=== PATIENT | female | born 1945 | race Caucasian/White ===

== ENCOUNTER 2017-05-08 02:17 | Emergency (ER) | payer MEDICARE, BC ==
[~2017-05-08] VITALS: Ht 157.5 cm; Wt 58.6 kg
[2017-05-08] MEDS ORDERED: MAGN400C2 PO (02:45)
[2017-05-08] MEDS ORDERED: REST0.05 (02:45)
[2017-05-08] MEDS ORDERED: FURO20TA2 (02:45)
[2017-05-08] MEDS ORDERED: CARBIDOPA (02:45)
[2017-05-08] MEDS ORDERED: LEVO75TA4 (02:45)
[2017-05-08] MEDS ORDERED: PROP80CA (02:45)
[2017-05-08] MEDS ORDERED: PANT40TA2 (02:45)
[2017-05-08] MEDS ORDERED: COMBAER6 (02:45)
[2017-05-08] MEDS ORDERED: SIMV10TA2 (02:45)
[2017-05-08] MEDS ORDERED: SODI1TAB6 (02:45)
[2017-05-08] MEDS ORDERED: BUSP1TAB (02:45)
[2017-05-08] MEDS ORDERED: MONT10TA2 (02:45)
[2017-05-08] MEDS ORDERED: CALC500C8 PO (02:45)
[2017-05-08] MEDS ORDERED: FENT12PA (02:45)
[2017-05-08] MEDS ORDERED: D31000CA4 PO (02:47)
[2017-05-08] MEDS ORDERED: OCUVTAB PO (02:47)
[2017-05-08] MEDS ORDERED: PROBCAP14 PO (02:47)
[2017-05-08] MEDS ORDERED: COLA100C5 PO (02:47)
[2017-05-08] MEDS ORDERED: MECLIZINE 25 MG TABLET PO ONE (04:15)
[2017-05-08 04:24] LABS: BASO % 0.7 % (0.0-1.0); EOS # 0.1 K/mm3 (0.0-0.50); EOS % 1.6 % (0.0-3.0); LARGE UNSTAINED CELL # 0.1 K/mm3 (0.0-0.4); LARGE UNSTAINED CELL % 1.7 % (0.0-4.0); LYMPH # 0.9 K/mm3 (1.5-4.5); MEAN CORPUSCULAR HEMOGLOBIN 32.5 pg (27.0-33.0); MEAN CORPUSCULAR HGB CONC 35.2 g/dl (32.0-36.5); MEAN CORPUSCULAR VOLUME 92.4 fl (80.0-96.0); MONO # 0.3 K/mm3 (0.0-0.8); MONO % 5.9 % (0.0-5.0); NEUTROPHILS # 3.6 K/mm3 (1.8-7.7); NEUTROPHILS % 72.2 % (36.0-66.0); PLATELET COUNT, AUTOMATED 215 k/mm3 (150-450); RED CELL DISTRIBUTION WIDTH 12.9 % (11.5-14.5)
[2017-05-08 04:33] LABS: ANION GAP 7 MEQ/L (8-16); BLOOD UREA NITROGEN 17 MG/DL (7-18); CALCIUM LEVEL 9.4 MG/DL (8.8-10.2); CARBON DIOXIDE LEVEL 31 MEQ/L (21-32); CHLORIDE LEVEL 92 MEQ/L (98-107); CREATININE FOR GFR 0.72 MG/DL (0.55-1.02); GLOMERULAR FILTRATION RATE > 60.0 (>39); GLUCOSE, FASTING 101 MG/DL (83-110); MAGNESIUM LEVEL 2.2 MG/DL (1.8-2.4); POTASSIUM SERUM 3.7 MEQ/L (3.5-5.1); SODIUM LEVEL 130 MEQ/L (136-145)
[2017-05-08 05:51] VITALS: BP 155/72
[2017-05-08] MEDS ORDERED: MECL-68 PO (06:00)
== END 2017-05-08 06:15 | disposition home or self-care (01) ==
LOC: M ED 03:30
DX: H81.393 Other peripheral vertigo, bilateral (principal); H83.90 Unspecified disease of inner ear, unspecified ear; Z79.899 Other long term (current) drug therapy; Z88.8 Allergy status to other drugs, medicaments and biological substances; Z88.5 Allergy status to narcotic agent; Z88.1 Allergy status to other antibiotic agents; Z88.7 Allergy status to serum and vaccine